=== PATIENT | male | born 1995 | race Caucasian/White ===

== ENCOUNTER 2019-03-12 18:00 | Outpatient (RCR) | payer OTHER, SELFPAY ==
[2019-02-21 10:21] VITALS: BMI 21.4
--- NOTE | 2019-02-28 09:55 | HP.OTEVAL ---
Patient's Visit Information KATJA COWAN is a 23 year old M, referred to Occupational Therapy by ZHEN Morales, with a diagnosis of left IF laceration without damage. 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 pt states this happened 2018. Pt reports he was moving his finger well with stitches in and after stitches come out he was placed in a splint to limit motion to prevent incision from opening- pt would like to return to using his left hand for ADLs and IADLS - Pain left hand 4 Pain Intensity Range: 1, 6 - ROM MP: left IF 95 right 0/95 PIP: left IF 40 right 0/100 DIP: left IF 15 right 0/85 - Strength Mid Level Practitioner: left 55# right 130# Lateral Pinch: left NT right 20# Tripod Pinch: left NT right 32# - Edema PIP: left IF 7.2 left 6.8 - Sensation Thumb: right 2.83 left 2.83 Index: right 2.83 left 2.83 Middle: right 2.83 left 2.83 Ring: right 2.83 left 2.83 Little: right 2.83 left 2.83 - Quick DASH-Disab of Arm,Shoulder& Hand Quick DASH Score: 55.0000 - Goals Goal:: PT will demo a increase in left knee bolter strength to 100# or greater to return to PLOF with ADLs and IADLS by D/c. Pt will demo an increase in lateral and tripod pinch by 2# to increase pts independent with opening baggies, containers at PLOF by D/C. Goal:: Pt will demo the ability to form a composite fist to hold and receive 10 coins without dropping coins/ and coin manipulation/money mtg. tasks and ind. With manipulating fasteners for dressing by D/C. Pt will demo the ability to form a composite fist to return to performing BADLs and IADLS at PLOF by d/c. Goal:: pt will demo the ability to use left IF with daily tasks to return to being IND with manipulating fasteners by d/c - Rehabilitation General Assessment: pt demo with limited left IF ROM and weakness of left knee bolter and pinch strength. The limitations is preventing him from using his left hand for ADLs and IADLs at this time. pt would benefit from skilled OT services 2-3x week for 4 weeks to return pt to PLOF. Today therapist ed, pt on AROM ex, and edema control. Pt was given handout, demo understanding of ex and agrees to POC. Rehabilitation Potential: Good - Anticipated Interventions Anticipated Interventions: A/AAROM/PROM, Strengthening, Scar Care, Desensitization, Sensory Retraining, Wound Care, Modalities, Ergonomic Education - Visit Plan Frequency: 2-3x /Week Duration: 4 Weeks TEXT: Thank you for the opportunity to evaluate your patient. For Medicare and Medicare HMO plans, please review the plan of care and approve it. It will need to be FAXED BACK to us at [phone] for Medicare purposes. Please let me know if there are questions or concerns regarding this plan of care. Physician Signature: Date:
--- NOTE | 2019-03-20 06:38 | HP.OTDCSUM ---
HP - OT D/C Summary It has been my pleasure to treat KATJA COWAN under orders from ZHEN Morales, for the diagnosis of left IF laceration without damage for a total of 5 visit(s). Please see the following information for a summary of their discharge status. - Overall Improvement % Improvement: 95 - Objective Objective/Function: left PIP +5/100* flex. left DIP 0/90* flex. left shorthand reporter strength 110#. right shorthand reporter today 135#. IF circum. 6.7 - Goals Patient Goals: Regain Mobility, Regain Strength, Use Hand/Wrist/Arm Normally Again, Decrease Tingling/Numbness Goal:: PT will demo a increase in left shorthand reporter strength to 100# or greater to return to PLOF with ADLs and IADLS by D/c. Pt will demo an increase in lateral and tripod pinch by 2# to increase pts independent with opening baggies, containers at PLOF by D/C. Goal:: Pt will demo the ability to form a composite fist to hold and receive 10 coins without dropping coins/ and coin manipulation/money mtg. tasks and ind. With manipulating fasteners for dressing by D/C. Pt will demo the ability to form a composite fist to return to performing BADLs and IADLS at PLOF by d/c. Goal:: pt will demo the ability to use left IF with daily tasks to return to being IND with manipulating fasteners by d/c - Plan Plan: pt has met goals in OT and per pt has returned to normal use of his hand. pt d/c at this time. - D/C Information Discharge Comments: pt has met goals in OT and is D/C at this time. If there are questions or concerns regarding this patient's occupational therapy, please fell free to call me at [phone]. Thank you for the referral of this patient. Sincerely, Tori Grossman, OTR/L, CHT
== END 2019-03-12 19:00 | disposition home or self-care (01) ==
LOC: OT 18:00
PROVIDERS: Referring Provider Physician Assistant; Visit Provider Physician Assistant
DX: S61.211D Laceration without foreign body of left index finger without damage to nail, subsequent encounter (principal)
CPT/HCPCS: 97110; 97166; 97530